=== PATIENT | female | born 1995 | race African-American/Black ===

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

== ENCOUNTER 2017-02-26 17:04 | Emergency (ER) | payer OTHER ==
[~2017-02-26] VITALS: Ht 154.9 cm; Wt 80.0 kg
[2017-02-26 17:48] VITALS: BP 118/67; PULSE 82; RESP 18; TEMP 98; O2SAT 100
[2017-02-26 18:17] LABS: AUTOMATED NEUTROPHIL # 10.1 TH/MM3 (1.8-7.7); BASOPHIL % 0.2 % (0.0-2.0); EOSINOPHIL % 0.1 % (0.0-4.0); HEMATOCRIT 37.1 % (35.0-46.0); HEMO FLAGS DIFF FINAL; LYMPH % 15.3 % (9.0-44.0); MEAN CELL VOLUME 87.7 FL (80.0-100.0); MEAN CORPUSCULAR HEMOGLOBIN 28.7 PG (27.0-34.0); MEAN CORPUSCULAR HGB CONC 32.7 % (32.0-36.0); MONO % 6.3 % (0.0-8.0); NEUT % 78.1 % (16.0-70.0); PLATELET COUNT 231 TH/MM3 (150-450); RED BLOOD COUNT 4.23 MIL/MM3 (4.00-5.30); RED CELL DISTRIBUTION WIDTH 15.6 % (11.6-17.2)
[2017-02-26 18:35] LABS: ANION GAP 8 MEQ/L (5-15); AST (GOT) 12 U/L (16-38); BICARBONATE 22.2 MEQ/L (21.0-32.0); BLOOD UREA NITROGEN 6 MG/DL (7-18); CHLORIDE 105 MEQ/L (98-107); GLOMERULAR FILTRATION RATE 162 ML/MIN (>89); POTASSIUM 3.6 MEQ/L (3.5-5.1); SODIUM (NA) 135 MEQ/L (136-145)
[2017-02-26 18:36] LABS: ALT (GPT) 11 U/L (9-42)
[2017-02-26 18:38] LABS: ALKALINE PHOSPHATASE 59 U/L (45-117); BACTERIA, URINE RARE /hpf; BLOOD, URINE SMALL (NEG); CALCIUM OXALATE CRYSTALS,URINE RARE /hpf; COMMENT (UR) CULT NOT INDICATED; CULTURE IF INDICATED CULT NOT INDICATED; GLUCOSE,URINE NEG (NEG); KETONE, URINE TRACE mg/dL (NEG); MUCUS URINE FEW /lpf (OCC); NITRITE,URINE NEG (NEG); SQUAMOUS EPITHELIAL CELL URINE 18 /hpf (0-5); TOTAL BILIRUBIN ADULT 0.3 MG/DL (0.2-1.0); URINE COLOR YELLOW (YELLW/STRAW)
== END 2017-02-26 18:29 | disposition left against medical advice (07) ==
LOC: NEDAMB 17:04
DX: F99 Mental disorder, not otherwise specified (principal)
CPT/HCPCS: 80053; 81001; 84703; 85025; 99283

== ENCOUNTER 2017-03-03 14:48 | Inpatient (IN) | payer OTHER ==
[~2017-03-03] VITALS: Ht 154.9 cm; Wt 76.8 kg
[2017-03-03 15:05] VITALS: BP 113/66; PULSE 74; RESP 16; TEMP 99.3; O2SAT 98
[2017-03-03 15:27] LABS: AUTOMATED NEUTROPHIL # 8.3 TH/MM3 (1.8-7.7); BASOPHIL % 0.3 % (0.0-2.0); EOSINOPHIL % 0.4 % (0.0-4.0); HEMATOCRIT 33.7 % (35.0-46.0); HEMO FLAGS DIFF FINAL; LYMPH % 18.3 % (9.0-44.0); MEAN CELL VOLUME 87.3 FL (80.0-100.0); MEAN CORPUSCULAR HEMOGLOBIN 29.8 PG (27.0-34.0); MEAN CORPUSCULAR HGB CONC 34.1 % (32.0-36.0); MONO % 5.8 % (0.0-8.0); NEUT % 75.2 % (16.0-70.0); PLATELET COUNT 214 TH/MM3 (150-450); RED BLOOD COUNT 3.86 MIL/MM3 (4.00-5.30); RED CELL DISTRIBUTION WIDTH 15.5 % (11.6-17.2)
--- NOTE | 2017-03-03 15:27 | PD ---
HPI Chief Complaint: psychiatric symptoms Time Seen by Provider: 15:07 Travel History International Travel<30 days: No Contact w/Intl Traveler<30days: No Traveled to known affect area: No History of Present Illness HPI 21-year-old female presents to the emergency room under Ceja act initiated by police department after patient attempted suicide 4 days ago and her dorm room at [facility]. Patient states she was feeling depressed and suicidal so she took multiple Advil, about 10 at one time. She has felt suicidal in the past but never attempted suicide before. States she was especially suicidal because she just found out she was and her mother is disappointed in her. The attempt was 4 days ago and patient's roommates called 911 and had her Ceja acted at that time. While in the ED at that time, she ran away and has been hiding since then. Police Department found her and brought her to the emergency room today to fulfill ceja act. She denies hallucinations, delusions, or suicidal or homicidal ideations at this time. Denies any chronic medical conditions. She occasionally takes Advair and albuterol. Patient is currently about 9 weeks last menstrual cycle was March 02, 2017. She has been taking vitals daily. Patient reports vaginal bleeding on the day she took the medication but it happened prior to overdosing. Patient's issues been having constant lower pelvic pain since being . She plans to keep the baby. Denies psychiatric history. Denies drug or alcohol use. PFSH Past Medical History Anemia: Yes Asthma: Yes Diminished Hearing: No Respiratory: Yes (ASTHMA) Immunizations Current: Yes : 0 Social History Alcohol Use: Yes (RARE) Tobacco Use: No Substance Use: No Allergies-Medications (Allergen,Severity, Reaction): Coded Allergies: No Known Allergies (Unverified , 03/03/17) Reported Meds & Prescriptions Reported Meds & Active Scripts Active No Active Prescriptions or Reported Medications Review of Systems Except as stated in HPI: all other systems reviewed are Neg Physical Exam Narrative GENERAL: Well-nourished, well-developed female in no acute distress. Afebrile. Ambulatory. SKIN: Focused skin assessment warm/dry. HEAD: Normocephalic. EYES: No scleral icterus. No injection or drainage. NECK: Supple, trachea midline. No JVD or lymphadenopathy. CARDIOVASCULAR: Regular rate and rhythm without murmurs, gallops, or rubs. RESPIRATORY: Breath sounds equal bilaterally. No accessory muscle use. GASTROINTESTINAL: Abdomen soft, nondistended. Mild tenderness to palpation of the right lower pelvic region. No peritoneal signs. No guarding or rebound tenderness. PSYCHIATRIC: No delusional thought processes. No hallucinations. Normal affect. Good mood. Data Data Last Documented VS Vital Signs Date Time Temp Pulse Resp B/P (MAP) Pulse Ox O2 Delivery O2 Flow Rate FiO2 03/03/17 15:05 99.3 74 16 113/66 (82) 98 Orders Orders Complete Blood Count With Diff (03/03/17 15:07) Comprehensive Metabolic Panel (03/03/17 15:07) Urinalysis - C+S If Indicated (03/03/17 15:07) Iv Access Insert/Monitor (03/03/17 15:07) Beta Hcg (Quant/Titer) (03/03/17 15:07) Psych Screen (03/03/17 15:07) Drug Screen, Random Urine (03/03/17 15:07) Alcohol (Ethanol) (03/03/17 15:07) Salicylates (Aspirin) (03/03/17 15:07) Tylenol (Acetaminophen) (03/03/17 15:07) Us Pelvis (Ques Preg/Ectopic) (03/03/17 ) Labs Laboratory Tests Test 03/03/17 15:14 White Blood Count 11.0 TH/MM3 Red Blood Count 3.86 MIL/MM3 Hemoglobin 11.5 GM/DL Hematocrit 33.7 % Mean Corpuscular Volume 87.3 FL Mean Corpuscular Hemoglobin 29.8 PG Mean Corpuscular Hemoglobin Concent 34.1 % Red Cell Distribution Width 15.5 % Platelet Count 214 TH/MM3 Mean Platelet Volume 6.9 FL Neutrophils (%) (Auto) 75.2 % Lymphocytes (%) (Auto) 18.3 % Monocytes (%) (Auto) 5.8 % Eosinophils (%) (Auto) 0.4 % Basophils (%) (Auto) 0.3 % Neutrophils # (Auto) 8.3 TH/MM3 Lymphocytes # (Auto) 2.0 TH/MM3 Monocytes # (Auto) 0.6 TH/MM3 Eosinophils # (Auto) 0.0 TH/MM3 Basophils # (Auto) 0.0 TH/MM3 CBC Comment DIFF FINAL Differential Comment Urine Color YELLOW Urine Turbidity HAZY Urine pH 6.5 Urine Specific [place] 1.030 Urine Protein 30 mg/dL Urine Glucose (UA) NEG mg/dL Urine Ketones TRACE mg/dL Urine Occult Blood MOD Urine Nitrite NEG Urine Bilirubin NEG Urine Urobilinogen 8.0 MG/DL Urine Leukocyte Esterase LARGE Urine RBC 1 /hpf Urine WBC 5 /hpf Urine Squamous Epithelial Cells 44 /hpf Urine Bacteria FEW /hpf Urine Hyaline Casts 2 /lpf Urine Mucus MANY /lpf Urine Yeast (Budding) OCC Microscopic Urinalysis Comment CULT NOT INDICATED Blood Urea Nitrogen 8 MG/DL Creatinine 0.63 MG/DL Random Glucose 86 MG/DL Total Protein 8.1 GM/DL Albumin 3.7 GM/DL Calcium Level 9.3 MG/DL Alkaline Phosphatase 56 U/L Aspartate Amino Transf (AST/SGOT) 7 U/L Alanine Aminotransferase (ALT/SGPT) 10 U/L Total Bilirubin 0.4 MG/DL Sodium Level 137 MEQ/L Potassium Level 3.5 MEQ/L Chloride Level 106 MEQ/L Carbon Dioxide Level 23.4 MEQ/L Anion Gap 8 MEQ/L Estimat Glomerular Filtration Rate 147 ML/MIN Human Chorionic Gonadotropin, Quant 261268 MIU/ML Salicylates Level LESS THAN 1.7 MG/DL Urine Opiates Screen NEG Acetaminophen Level LESS THAN 2.0 MCG/ML Urine Barbiturates Screen NEG Urine Amphetamines Screen NEG Urine Benzodiazepines Screen NEG Urine Cocaine Screen NEG Urine Cannabinoids Screen NEG Ethyl Alcohol Level LESS THAN 3 MG/DL MDM Medical Decision Making Medical Screen Exam Complete: Yes Emergency Medical Condition: Yes Medical Record Reviewed: Yes Differential Diagnosis Suicidal ideation, overdose, depression, anxiety, bipolar disorder, schizophrenia Narrative Course 21-year-old approximately 9 week female presents to the emergency room for evaluation of suicide attempt and suicidal ideation 4 days ago. Patient is Ceja acted at that time but eloped and was found by police department today. She is brought back to the ER to fulfill ceja act. Patient denies suicidal ideation at this time. States she took a handful of ibuprofen 4 days ago. She reports vaginal bleeding 4 days ago and right lower pelvic pain that has been consistent since she found out she was . Vital signs stable. Patient is well-appearing in the emergency room. Mild tenderness to mentation of the right pelvic region without peritoneal signs. Basic labs obtained. CBC and CMP are unremarkable. Drug screen is negative. Salicylates less than 1.7. Tylenol less than 2. Alcohol is less than 3. HCG is [id number]. UA shows large leukocyte esterase with many mucous and few bacteria , likely contamination given the squamous cells are 44 but patient will be treated empirically with Macrobid because she is ; she should receive a prescription upon discharge. Given first dose here. Ultrasound shows single intrauterine gestation with estimated age of 9 weeks and 2 days. Normal heart rate is identified. Patient is medically cleared for psychiatric evaluation at this time. Diagnosis Primary Impression: Medical clearance for psychiatric admission Scripts No Active Prescriptions or Reported Meds Condition: Daphnie Martinez Mar 03, 2017 15:27
[2017-03-03 15:41] LABS: ANION GAP 8 MEQ/L (5-15); BACTERIA, URINE FEW /hpf; BLOOD, URINE MOD (NEG); COMMENT (UR) CULT NOT INDICATED; CULTURE IF INDICATED CULT NOT INDICATED; GLUCOSE,URINE NEG (NEG); HYALINE CAST, URINE 2 /lpf (RARE); KETONE, URINE TRACE mg/dL (NEG); MUCUS URINE MANY /lpf (OCC); NITRITE,URINE NEG (NEG); PH, URINE 6.5 (5.0-8.5); SQUAMOUS EPITHELIAL CELL URINE 44 /hpf (0-5); URINE COLOR YELLOW (YELLW/STRAW)
[2017-03-03 16:08] LABS: ALKALINE PHOSPHATASE 56 U/L (45-117); ALT (GPT) 10 U/L (9-42); AST (GOT) 7 U/L (16-38); BICARBONATE 23.4 MEQ/L (21.0-32.0); BLOOD UREA NITROGEN 8 MG/DL (7-18); CHLORIDE 106 MEQ/L (98-107); GLOMERULAR FILTRATION RATE 147 ML/MIN (>89); POTASSIUM 3.5 MEQ/L (3.5-5.1); SODIUM (NA) 137 MEQ/L (136-145); TOTAL BILIRUBIN ADULT 0.4 MG/DL (0.2-1.0)
[2017-03-03 16:31] LABS: ACETAMINOPHEN LESS THAN 2.0 MCG/ML (10.0-30.0); ALCOHOL LESS THAN 3 MG/DL (0-5)
[2017-03-03 16:48] LABS: BETA HCG QUANT 190703 MIU/ML (0-5)
--- NOTE | 2017-03-03 17:01 | RADRPT ---
EXAM DATE/TIME: 03/03/2017 16:16 [facility] COMPARISON: No previous studies available for comparison. INDICATIONS : Pelvic pain/bleeding. LAB(S): Beta-hC MEDICAL HISTORY : Glasses. Asthma. Alcohol use. Anemia. SURGICAL HISTORY : Spinal fusion. ENCOUNTER: Initial ACUITY: 1 month PAIN SCORE: 3/10 LOCATION: Bilateral pelvis MEASUREMENTS: UTERUS: 9.8 x 7.7 x 6.4 cm ENDOMETRIAL STRIPE: 3 mm RIGHT OVARY: 3.3 x 2.5 x 1.8 cm LEFT OVARY: 3.1 x 2.5 x 1.3 cm FREE FLUID: No CROWN RUMP LENGTH: 2.5 = 9 WKS 2 DAYS FHR: 152 BPM FINDINGS: UTERUS: The myometrium has homogeneous echotexture without mass. There is a single intrauterine gestational sac measuring 3.9 x 2.2 x 4.6 cm. pole measures 2.53 cm indicating gestational age of 9 weeks a nd 2 days. No yolk sac is visualized. M-mode Doppler documented heart rate of 152 beats per min [place]. RIGHT OVARY: Ovary contains no mass or significant cystic lesion. Follicles are present. LEFT OVARY: Ovary contains no mass or significant cystic lesion. Follicles are present. MISCELLANEOUS: No free fluid. CONCLUSION: Single intrauterine gestation with estimated age of 9 weeks and 2 days. Normal heart rate is id entified. Ashkan Sanches MD on March 03, 2017 at 16:57 Board Certified Radiologist. This report was verified electronically.
[2017-03-03] MEDS ORDERED: NITROFURANTOIN MONOHYD MACROCR 100 MG CAP PO ONE (17:15)
[2017-03-04 00:40] VITALS: BP 99/51; PULSE 57; RESP 18
[2017-03-04 05:33] VITALS: BP 91/55; PULSE 67; RESP 17; O2SAT 100
[2017-03-04 10:49] VITALS: BP 127/56; PULSE 73; RESP 18; O2SAT 99
[2017-03-04 18:13] VITALS: BP 114/58; PULSE 60; RESP 16; O2SAT 100
[2017-03-04 22:05] VITALS: BP 110/60; PULSE 77; RESP 18; TEMP 98.4; O2SAT 100
[2017-03-05 06:08] VITALS: BP 96/50; PULSE 68; RESP 16; TEMP 98.4; O2SAT 100
--- NOTE | 2017-03-05 09:57 | PD.CONS ---
HPI Chief Complaint Date Seen: Mar 05, 2017 Time Seen: 09:20 Travel History International Travel<30 Days: No Contact w/Intl Traveler<30Days: No Known Affected Area: No History of Present Illness HPI 21-year-old at 9/4 weeks gestation based on ultrasound done 03/03 admitted due to attempted suicide with Motrin. A few days ago, patient took about 10 tabs of Motrin in attempted suicide due to feeling depressed and stressed out about recent discovery that she was and her family being disappointed in her. Today she feels well and rates her mood as improved. She has been talking to her family and states they are "coming around." Denies leakage of fluid, contractions/cramping. Endorses mild-moderate vaginal bleeding. She also notes "lumpiness" of her left breast. History Past Medical History Medical History: Denies Significant Hx Obstetric History Obstetric History G1 Past Surgical History Surgical History: No Previous Surgery Family History Family History: Negative Social History Alcohol Use: No Tobacco Use: No Substance Abuse: No Allergies-Medications (Allergen,Severity, Reaction): Coded Allergies: No Known Allergies (Unverified , 03/03/17) Home Meds No Active Prescriptions or Reported Meds Review of Systems Except as stated in HPI: all other systems reviewed are Neg Physical Exam Vital Signs Date Time Temp Pulse Resp B/P (MAP) Pulse Ox O2 Delivery O2 Flow Rate FiO2 03/05/17 06:08 98.4 68 16 96/50 (65) 100 03/04/17 22:05 98.4 77 18 110/60 (77) 100 03/04/17 18:13 60 16 114/58 (76) 100 Room Air 03/04/17 10:49 73 18 127/56 (79) 99 Room Air Narrative GENERAL: Well-nourished, well-developed patient. SKIN: Warm and dry. HEAD: Normocephalic and atraumatic. EYES: No scleral icterus. No injection or drainage. ENT: No nasal drainage noted. Mucous membranes pink. Airway patent. NECK: Supple, trachea midline. No JVD. CARDIOVASCULAR: Pulse normal and regular. RESPIRATORY: Unlabored breathing. BREASTS: Exam of left breast showed no masses, no retractions, no nipple discharge. ABDOMEN/GI: Abdomen soft, NDNT EXTREMITIES: No cyanosis or edema. BACK: Spine straight NEUROLOGICAL: Awake and alert. Motor and sensory grossly within normal limits. Normal speech. PSYCH: Normal mood. Affect fatigued. Well kempt. Speech at appropriate volume and rate. Good eye contact. No SI/HI. No AVH. Data Data Vital Signs Reviewed: Yes Orders Orders Diet Regular Basic (03/04/17 Lunch) Diet Regular Basic (03/04/17 Dinner) Admit Order (Ed Use Only) (03/04/17 19:05) Vital Signs (Adult) GIANLUCA.Q12H.E (03/04/17 21:56) Activity Oob Ad Mary Grace (03/04/17 21:56) Level Of Observation (Psych) (03/04/17 21:56) Diet Regular Basic (03/05/17 Breakfast) Basic Metabolic Panel (Bmp) (03/05/17 06:00) Lipid Profile (03/05/17 06:00) Hemoglobin (Hgb) A1c (03/05/17 06:00) Consult Hospitalist (03/04/17 ) Consult Gynecology (03/05/17 ) (Hub Use Only)Inp Phy Cons/Ref (03/05/17 ) Physician Name Changes (03/05/17 ) Physician Name Changes (03/05/17 ) (Hub Use Only)Inp Phy Cons/Ref (03/05/17 ) Fire Extinguisher Repairer Clear For Discharge (03/05/17 ) Labs Laboratory Tests Test 03/03/17 15:14 White Blood Count 11.0 TH/MM3 Red Blood Count 3.86 MIL/MM3 Hemoglobin 11.5 GM/DL Hematocrit 33.7 % Mean Corpuscular Volume 87.3 FL Mean Corpuscular Hemoglobin 29.8 PG Mean Corpuscular Hemoglobin Concent 34.1 % Red Cell Distribution Width 15.5 % Platelet Count 214 TH/MM3 Mean Platelet Volume 6.9 FL Neutrophils (%) (Auto) 75.2 % Lymphocytes (%) (Auto) 18.3 % Monocytes (%) (Auto) 5.8 % Eosinophils (%) (Auto) 0.4 % Basophils (%) (Auto) 0.3 % Neutrophils # (Auto) 8.3 TH/MM3 Lymphocytes # (Auto) 2.0 TH/MM3 Monocytes # (Auto) 0.6 TH/MM3 Eosinophils # (Auto) 0.0 TH/MM3 Basophils # (Auto) 0.0 TH/MM3 CBC Comment DIFF FINAL Differential Comment Urine Color YELLOW Urine Turbidity HAZY Urine pH 6.5 Urine Specific [place] 1.030 Urine Protein 30 mg/dL Urine Glucose (UA) NEG mg/dL Urine Ketones TRACE mg/dL Urine Occult Blood MOD Urine Nitrite NEG Urine Bilirubin NEG Urine Urobilinogen 8.0 MG/DL Urine Leukocyte Esterase LARGE Urine RBC 1 /hpf Urine WBC 5 /hpf Urine Squamous Epithelial Cells 44 /hpf Urine Bacteria FEW /hpf Urine Hyaline Casts 2 /lpf Urine Mucus MANY /lpf Urine Yeast (Budding) OCC Microscopic Urinalysis Comment CULT NOT INDICATED Blood Urea Nitrogen 8 MG/DL Creatinine 0.63 MG/DL Random Glucose 86 MG/DL Total Protein 8.1 GM/DL Albumin 3.7 GM/DL Calcium Level 9.3 MG/DL Alkaline Phosphatase 56 U/L Aspartate Amino Transf (AST/SGOT) 7 U/L Alanine Aminotransferase (ALT/SGPT) 10 U/L Total Bilirubin 0.4 MG/DL Sodium Level 137 MEQ/L Potassium Level 3.5 MEQ/L Chloride Level 106 MEQ/L Carbon Dioxide Level 23.4 MEQ/L Anion Gap 8 MEQ/L Estimat Glomerular Filtration Rate 147 ML/MIN Human Chorionic Gonadotropin, Quant 105471 MIU/ML Salicylates Level LESS THAN 1.7 MG/DL Urine Opiates Screen NEG Acetaminophen Level LESS THAN 2.0 MCG/ML Urine Barbiturates Screen NEG Urine Amphetamines Screen NEG Urine Benzodiazepines Screen NEG Urine Cocaine Screen NEG Urine Cannabinoids Screen NEG Ethyl Alcohol Level LESS THAN 3 MG/DL Last Impressions Pelvis Ultrasound 03/03/17 0000 Signed Impressions: Service Date/Time: Friday, March 03, 2017 16:16 - CONCLUSION: Single intrauterine gestation with estimated age of 9 weeks and 2 days. Normal heart rate is identified. Ashkan Sanches MD MDM Medical Record Reviewed: Yes Narrative Course / MDM 21 yo at 9 weeks and 4 days by US done 03/03/17 #1 IUP IUP confirmed by ultrasound, no evidence of compromise Patient leaning toward keeping , needs to establish with HISTOLOGY ASSISTANT or Family Practice Refer to Dr. Maribell Howard at [facility] #2 Suicide attempt with ibuprofen in patient Risk of ibuprofen toxicity to kidneys reviewed with patient, but truly she is low risk of problem given only about 10 tabs of OTC ibuprofen Creatinine 0.63 Further psychiatric management and follow up per psychiatric team #3 Threatened Vaginal bleeding in first trimester, mild-moderate. US normal F/u with Dr. Howard as above Cleared for discharge from HISTOLOGY ASSISTANT standpoint. Referral for Dr. Howard placed in EMR. HISTOLOGY ASSISTANT to sign off, please re-consult as needed. Thank you for the opportunity to assist in the care of Ms. Cole. sdw Dr. Rankin Admitting diagnosis: Depressive Disorder NOS Condition: Stable Scripts No Active Prescriptions or Reported Meds Khoa Greene MD R2 Mar 05, 2017 09:57
[2017-03-05 12:53] LABS: ANION GAP 7 MEQ/L (5-15); BICARBONATE 23.7 MEQ/L (21.0-32.0); BLOOD UREA NITROGEN 9 MG/DL (7-18); CHLORIDE 102 MEQ/L (98-107); GLOMERULAR FILTRATION RATE 159 ML/MIN (>89); POTASSIUM 3.8 MEQ/L (3.5-5.1); SODIUM (NA) 133 MEQ/L (136-145)
--- NOTE | 2017-03-05 12:54 | PD.CONS ---
[facility] Reason for Consult Medical management Primary Care Physician Unknown Diagnoses: History of Present Illness 21-year-old female with a history of asthma, who happened to be @ 9/4 weeks gestation admitted to inpatient psychiatry secondary to attempted suicide with injection of 10 tablets of Motrin as well as pain tablet of Aleve. And stiff, she was feeling depressed and stressed out due to the recent discovery of her and her family being disappointed in her. She denies any prior history of suicidal attempt. Currently denies any chest pain or shortness of breath. Abnormal UA however patient denies any dysuria symptoms. Patient denies any prior history of STI's. 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 Review of Systems Except as stated in HPI: all other systems reviewed are Neg Past Family Social History Allergies: Coded Allergies: No Known Allergies (Unverified , 03/03/17) Past Medical History Asthma Past Surgical History Spinal fusion secondary to scoliosis Family History Negative family history of depression, CAD or diabetes. Social History Patient is currently a student local [employer] in [employer]. She denies tobacco, alcohol use drug intake Physical Exam Vital Signs Vital Signs Date Time Temp Pulse Resp B/P (MAP) Pulse Ox O2 Delivery O2 Flow Rate FiO2 03/05/17 06:08 98.4 68 16 96/50 (65) 100 03/04/17 22:05 98.4 77 18 110/60 (77) 100 03/04/17 18:13 60 16 114/58 (76) 100 Room Air Physical Exam GENERAL: This is a well-nourished, well-developed patient, in no apparent distress. SKIN: No rashes, ecchymoses or lesions. Cool and dry. HEAD: Atraumatic. Normocephalic. No temporal or scalp tenderness. EYES: Pupils equal round and reactive. Extraocular motions intact. No scleral icterus. No injection or drainage. ENT: Nose without bleeding, purulent drainage or septal hematoma. Throat without erythema, tonsillar hypertrophy or exudate. Uvula midline. Airway patent. NECK: Trachea midline. No JVD or lymphadenopathy. Supple, nontender, no meningeal signs. CARDIOVASCULAR: Regular rate and rhythm without murmurs, gallops, or rubs. RESPIRATORY: Clear to auscultation. Breath sounds equal bilaterally. No wheezes , rales, or rhonchi. GASTROINTESTINAL: Abdomen soft, non-tender, nondistended. No hepato-splenomegaly , or palpable masses. No guarding. MUSCULOSKELETAL: Extremities without clubbing, cyanosis, or edema. No joint tenderness, effusion, or edema noted. No calf tenderness. Negative Homans sign bilaterally. NEUROLOGICAL: Awake and alert. Cranial nerves II through XII intact. Motor and sensory grossly within normal limits. Five out of 5 muscle strength in all muscle groups. Normal speech. Laboratory Laboratory Tests Test 03/05/17 11:52 Result Diagram: 03/03/17 1514 03/03/17 1514 Imaging Last Impressions Pelvis Ultrasound 03/03/17 0000 Signed Impressions: Service Date/Time: Friday, March 03, 2017 16:16 - CONCLUSION: Single intrauterine gestation with estimated age of 9 weeks and 2 days. Normal heart rate is identified. sAhkan Sanches MD Assessment and Plan Assessment and Plan 21-year-old female with Suicidal attempt Depression Management per psychiatry Continue with current Ceja act Injection of Motrin and Aleve tablet BUN and creatinine within normal limits Intrauterine Patient was seen and evaluated by OB hospitalist Advised on starting vitamin daily She is to follow outpatient with Dr.Erin Howard at [facility] Threatened Vaginal bleeding in first trimester, mild-moderate. US normal She is to follow outpatient with Dr.Erin Howard at [facility] Normochromic normocytic anemia A combination of both iron deficiency anemia and bleeding from threatened Patient will need to start multivitamin with iron Continue to monitor H&H Abnormal UA without any symptoms of dysuria Treatment per OB DVT prophylaxis: Encourage ambulation Thank you for this consultation, [facility] will sign off and reconsult when necessary Code Status Full code Discussed Condition With Patient Hai Burrell MD Mar 05, 2017 12:54
[2017-03-05 12:55] LABS: HDL CHOLESTEROL 57.3 MG/DL (40.0-60.0); LDL CHOLESTEROL 72 MG/DL (0-99)
[2017-03-05] MEDS ORDERED: ALUMINUM/MAGNESIUM/SIMETH 30 ML CUP PO PRN (13:45)
[2017-03-05] MEDS ORDERED: ACETAMINOPHEN 325 MG TAB PO PRN (13:45)
[2017-03-05] MEDS ORDERED: diphenhydrAMINE HCL 50 MG CAP PO PRN (13:45)
[2017-03-05] MEDS ORDERED: MAGNESIUM HYDROXIDE SUSP 30 ML CUP PO PRN (13:45)
[2017-03-05] MEDS ORDERED: diphenhydrAMINE HCL 25 MG CAP PO PRN (14:45)
[2017-03-05 16:23] LABS: HEMOGLOBIN A1b 0.7 %; HEMOGLOBIN LA1C 1.9 %; HEMOGLOBIN P3 3.3 %
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
[2017-03-05 17:51] VITALS: BP 112/66; PULSE 69; RESP 18; TEMP 98.3; O2SAT 100
[2017-03-06 06:23] VITALS: BP 99/60; PULSE 67; RESP 16; TEMP 98; O2SAT 99
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
== END 2017-03-06 13:30 | disposition home or self-care (01) | DRG 781 ==
LOC: NEPD 14:48 → NEDA 03-04 19:07 → H270 03-04 21:46 → H260 03-05 15:00
PROVIDERS: ADMIT Student in an Organized Health Care Education/Training Program; ATTEND Student in an Organized Health Care Education/Training Program
DX: O99.341 Other mental disorders complicating pregnancy, first trimester (principal); O20.0 Threatened abortion; F43.21 Adjustment disorder with depressed mood; Z91.5 Personal history of self-harm; O99.511 Diseases of the respiratory system complicating pregnancy, first trimester; J45.909 Unspecified asthma, uncomplicated
CPT/HCPCS: 76700; 80048; 80053; 80061; 80307; 81001; 83036; 84702; 85025

== ENCOUNTER 2017-09-10 16:32 | Emergency (ER) | payer MEDICAID, OTHER ==
[~2017-09-10 16:32] MED LIST: ADVA250A INH; METR-1 PO; PREN1CHW7 PO; ZOFR4TAB PO
--- NOTE | 2017-09-10 16:58 | PD ---
HPI Chief Complaint Contractions Date Seen: Sep 10, 2017 Travel History International Travel<30 Days: No Contact w/Intl Traveler<30Days: No Known Affected Area: No History of Present Illness HPI The patient is a very pleasant 22 year old female at 36/4 weeks gestation presents to OB triage due to contractions. She states she has been feeling contractions for the past two days. She reports the contractions are irregular. She believes they are increasing in intensity. She denies leakage of fluid. Denies VB or other abnormal vaginal discharge. Endorses +FM. She otherwise denies dysuria, headaches, fevers, chest pain, dyspnea. She reports her has been complicated by several yeast infections for which she uses topical antifungal creams. She denies any bacterial infections or STIs. She is unsure of her GBS status. Para: 0 : 1 History Past Medical History Narrative Medical Asthma for which she has advair and albuterol inhalers, reports not using these during her Iron deficiency anemia Obstetric History Obstetric History Past Surgical History Surgical History: No Previous Surgery Family History Family History: Negative Social History Alcohol Use: No Tobacco Use: No Substance Abuse: No Allergies-Medications (Allergen,Severity, Reaction): Coded Allergies: No Known Allergies (Unverified Adverse Reaction, Unknown, 06/04/17) Home Meds Active Scripts Metronidazole (Flagyl) 500 Mg Tab, 1000 MG PO DAILY for Infection, #8 TAB 0 Refills Prov:Nicho Montoya MD 04/30/17 Fluticasone-Salmeterol Inh (Advair Diskus Inh) 250-50 Mcg/Blist Aer, 1 PUFF INH BID for asthma, #1 INHALER 3 Refills Rinse mouth after use. Prov:Nicho Montoya MD 04/30/17 Ondansetron (Zofran) 4 Mg Tab, 4 MG PO Q8HR Y for NAUSEA OR VOMITING for 7 Days , #14 TAB 0 Refills Prov:Massiel Jenkins CNMP 04/07/17 Vit W/ Ferric Phospha (Vitafol Gummies 3.33-0.333-34.8 mg) 1 Chw Chw, 11 CHEW PO CONTINUOUS for 30 Days, #30 CHEW 3 Refills Prov:Massiel Jenkins CNMP 04/07/17 Review of Systems Except as stated in HPI: all other systems reviewed are Neg Physical Exam Narrative GENERAL: Well-nourished, well-developed patient. SKIN: Warm and dry. HEAD: Normocephalic and atraumatic. EYES: No scleral icterus. No injection or drainage. ENT: No nasal drainage noted. Mucous membranes pink. Airway patent. NECK: Supple, trachea midline. No JVD. CARDIOVASCULAR: Regular rate and rhythm without murmurs, gallops, or rubs. RESPIRATORY: Breath sounds equal bilaterally. No accessory muscle use. ABDOMEN/GI: Abdomen soft, non-tender, bowel sounds present, no rebound, no guarding Gravid to 36 weeks size GENITOURINARY: External Genitalia: intact and normal in appearance Cervix: posterior Dilatation: 2cm Effacement: 40% Station: -2 Presentation: vertex Uterine Contractions: Irregular FHT's: Category: I Baseline: 140s Reactive: +accels Variability: moderate Decels: none noted EXTREMITIES: No cyanosis or edema. BACK: Nontender without obvious deformity. NEUROLOGICAL: Awake and alert. Motor and sensory grossly within normal limits. Normal speech. Data Data Vital Signs Reviewed: Yes [facility] Medical Record Reviewed: Yes Plan 22 year old at 36/4 weeks gestation presents to OB triage due to contractions. 1. IUP - Category I tracing - Irregular contractions on tocometer - Cervix: 2/40/-2, vertex - No reported LOF or VB. +FM. - Labor precautions reviewed with the patient - Instructed patient to continue routine follow up with her OB provider lacey Chamorro Diagnosis Diagnosis: Primary Impression: 36 weeks gestation of Disposition: DISCHARGE HOME Condition: Stable Diogo Neves MD R2 Sep 10, 2017 16:58
[2017-09-10 17:00] VITALS: TEMP 98.5
== END 2017-09-10 17:57 | disposition home or self-care (01) ==
LOC: HOBED 16:32
DX: O62.8 Other abnormalities of forces of labor (principal); J45.909 Unspecified asthma, uncomplicated; Z3A.36 36 weeks gestation of pregnancy
CPT/HCPCS: 99284

== ENCOUNTER 2017-09-26 01:44 | Inpatient (IN) | payer MEDICAID ==
[2017-09-26] MEDS ORDERED: LACTATED RINGER'S 1000 ML INJ 1,000 ML IV (02:26)
[2017-09-26] MEDS ORDERED: LIDOCAINE HCL 1% 50 ML VIAL INFIL (02:30)
[2017-09-26] MEDS ORDERED: LIDOCAINE HCL 1% 50 ML VIAL I-DERMAL (02:30)
[2017-09-26] MEDS ORDERED: MINERAL OIL 10 ML VIAL TOPICAL (02:30)
[2017-09-26] MEDS ORDERED: CITRIC ACID-SODIUM CITRATE LIQ 30 ML UDC PO (02:30)
[2017-09-26] MEDS ORDERED: ONDANSETRON HCL 4 MG/2 ML VIAL IV PUSH (02:30)
[2017-09-26] MEDS ORDERED: SODIUM CHLORID 0.9% 500 ML INJ 500 ML IV (02:30)
[2017-09-26] MEDS: LACTATED RINGER'S 1000 ML INJ 1,000 ML IV (02:31)
[2017-09-26] MEDS: PENICILLIN G POTASSIUM INJ 5,000,000 UNITS in SODIUM CHLORIDE 0.9% INJ 100 ML IV (02:42)
[2017-09-26] MEDS ORDERED: SODIUM CHLOR 0.9% 1000 ML INJ 1,000 ML IV (02:46)
[2017-09-26 02:54] LABS: AUTOMATED NEUTROPHIL # 9.3 TH/MM3 (1.8-7.7); BASOPHIL % 0.3 % (0.0-2.0); EOSINOPHIL % 0.3 % (0.0-4.0); HEMATOCRIT 27.8 % (35.0-46.0); HEMO FLAGS DIFF FINAL; HEMOGLOBIN 8.9 GM/DL (11.6-15.3); LYMPH % 26.3 % (9.0-44.0); LYMPHOCYTE # 3.7 TH/MM3 (1.0-4.8); MEAN CELL VOLUME 80.6 FL (80.0-100.0); MEAN CORPUSCULAR HEMOGLOBIN 25.8 PG (27.0-34.0); MEAN PLATELET VOLUME 7.6 FL (7.0-11.0); NEUT % 66.1 % (16.0-70.0); PLATELET COUNT 272 TH/MM3 (150-450); RED BLOOD COUNT 3.45 MIL/MM3 (4.00-5.30); RED CELL DISTRIBUTION WIDTH 14.8 % (11.6-17.2); WHITE BLOOD COUNT 14.1 TH/MM3 (4.0-11.0)
[2017-09-26] MEDS: fentaNYL 2MCG-BUPIV 0.125% INJ 100 ML (03:38)
[2017-09-26] MEDS: LIDOCAINE HCL 1% PF 5 ML AMPULE (03:44)
[2017-09-26] MEDS: OXYTOCIN 30 UNITS-500ML PREMIX 500 ML IV (05:07)
[2017-09-26 05:24] LABS: BLOOD GAS BASE EXCESS -1.2 mmol/L (-2-2); BLOOD GAS O2 HGB SATURATION 19 % (90-100); CORD BLOOD GAS HCO3 26 mmol/L (21-29); CORD BLOOD GAS PCO2 63 mmHG (34-78); CORD BLOOD GAS PH 7.23 (7.14-7.42); CORD BLOOD GAS PO2 15 mmHG (3.0-40.0); DRAW SITE CORD BLOOD; STAT YES
[2017-09-26] MEDS: LIDOCAINE HCL 1% PF 30 ML VIAL (05:27)
[2017-09-26] MEDS ORDERED: OXYTOCIN OTHER (06:15)
[2017-09-26] MEDS ORDERED: OXYTOCIN 30 UNITS-500ML PREMIX 500 ML IV (06:15)
[2017-09-26] MEDS ORDERED: [UNRECOGNIZED DRUG - OTHER] OTHER (06:15)
[2017-09-26] MEDS: ACETAMINOPHEN 325 MG TAB PO ×3 (06:18→14:40)
[2017-09-26] MEDS: IBUPROFEN 800 MG TAB PO ×2 (06:19→22:58)
[2017-09-26] MEDS: PENICILLIN G POTASSIUM INJ 2,500,000 UNITS in SODIUM CHLORIDE 0.9% INJ 100 ML IV (06:30)
[2017-09-26] MEDS ORDERED: DISCONTINUE ALL PREVIOUS ORDERS (07:00)
[2017-09-26] MEDS ORDERED: ZOLPIDEM TARTRATE 5 MG TAB PO (07:00)
[2017-09-26] MEDS ORDERED: ONDANSETRON ODT 4 MG TAB PO (07:00)
[2017-09-26] MEDS ORDERED: oxyCODONE/ACETAMINOPHEN 5 MG/325 MG 2 TABS PO (07:00)
[2017-09-26] MEDS ORDERED: ALUMINUM/MAGNESIUM/SIMETH 30 ML CUP PO (07:00)
[2017-09-26 09:03] LABS: AMPHETAMINE, URINE NEG (NEG); BARBITURATES, URINE NEG (NEG); BENZODIAZEPINE,URINE NEG (NEG); CANNABINOIDS, URINE NEG (NEG); COCAINE, URINE NEG (NEG)
[2017-09-26] MEDS: BENZOCAINE 20% TOPICAL SPRAY 60 ML CAN TOPICAL (10:31)
[2017-09-26] MEDS: WITCH HAZEL 50%/GLYCERIN 12.5% 40 PAD JAR TOPICAL (14:40)
[2017-09-26] MEDS: DIPHTH/TETANUS/ACEL PERTUSSIS (BOOSTER) 0.5 ML VIAL/PFS IM (14:42)
[2017-09-26] MEDS ORDERED: MEASLES, MUMPS, RUBELLA VACCINE 0.5 ML VIAL SQ (16:00)
[2017-09-27] MEDS: ACETAMINOPHEN 325 MG TAB PO ×3 (05:47→21:57)
[2017-09-27] MEDS: IBUPROFEN 800 MG TAB PO ×3 (05:47→21:56)
[2017-09-27] MEDS: DOCUSATE SODIUM 50 MG/SENNA 8.6 MG TAB PO (21:46)
[2017-09-28] MEDS: oxyCODONE/ACETAMINOPHEN 5 MG/325 MG TAB PO (07:29)
[2017-09-28] MEDS: IBUPROFEN 800 MG TAB PO (07:29)
[2018-07-23] MEDS ORDERED: OXYTOCIN 30 UNITS-500ML PREMIX 500 ML IV (06:15)
== END 2017-09-28 14:47 | disposition home or self-care (01) | DRG 775 ==
LOC: HOBED 01:44 → H1EA 09-27 21:35 → H2EA 02:12 → H1EA 07:52
PROC: 10E0XZZ Delivery of Products of Conception, External Approach (ICD-10-PCS; principal; 2017-09-26)
PROC: 0KQM0ZZ Repair Perineum Muscle, Open Approach (ICD-10-PCS; 2017-09-26)
DX: O70.1 Second degree perineal laceration during delivery (principal); Z37.0 Single live birth; O99.52 Diseases of the respiratory system complicating childbirth; O99.824 Streptococcus B carrier state complicating childbirth; Z3A.38 38 weeks gestation of pregnancy; Z23 Encounter for immunization
CPT/HCPCS: 59025; 80307; 82805; 85025; 86900; 86901; 90715; 99283-25